=== PATIENT | female | born 1990 | race Hispanic/Latino ===

== ENCOUNTER 2019-01-08 06:50 | Outpatient (CLI) | payer MEDICAID ==
--- NOTE | 2019-01-08 09:51 | ULT ---
TRANSABDOMINAL TRANSVAGINAL PELVIC ULTRASOUND: INDICATION: History of pelvic pain. COMPARISON: None. TECHNIQUE: Cortez scale, color Doppler, and spectral Doppler images were obtained in the pelvis via a transabdomin al and transvaginal approach. FINDINGS: The uterus measures 8.7 x 3.7 x 4.9 cm. The endometrial stripe was 5 mm. The right ovary measured 2.4 x 2.7 x 2.8 cm. The left ovary measured 2.8 x 1.3 x 2.8 cm. There is n ormal flow to both ovaries. There are bilateral follicular cysts. No free fluid is evident. IMPRESSION: Normal sonographic evaluation of the pelvis. POS: OFF
== END 2019-01-08 06:51 | disposition home or self-care (01) ==
LOC: BICULT 06:50
PROVIDERS: ATTEND Nurse Practitioner Women's Health
DX: R10.2 Pelvic and perineal pain (principal)
CPT/HCPCS: 76856